=== PATIENT | female | born 1970 | race Caucasian/White ===

== ENCOUNTER 2025-07-24 12:16 | Emergency (ER) | payer SELFPAY ==
[~2025-07-24] VITALS: Ht 165.1 cm; Wt 93.0 kg
[2025-07-24 14:05] LABS: BASOPHILS % 0.6 % (0.0-1.0); EOSINOPHILS % 2.8 % (0.0-6.0); LYMPHOCYTES % 18.5 % (18.0-39.1); MONOCYTES % 6.1 % (4.4-11.3); NEUTROPHILS % 71.7 % (38.7-80.0); RED CELL DISTRIBUTION WIDTH 13.6 % (11.7-14.4)
[2025-07-24 14:11] LABS: LEUKOCYTE ESTERASE ,URINE NEGATIVE (NEGATIVE)
[2025-07-24 14:12] LABS: PROTEIN,URINE DIPSTICK TRACE (NEGATIVE); URINE UROBILINOGEN 0.2 mg/dL (0.2 - 1)
[2025-07-24 14:13] LABS: EPITHELIAL CELLS,URINE MANY /LPF; WBC,URINE (MAN) 0-5 /HPF (0-5)
[2025-07-24 14:16] LABS: EST GLOMERULAR FILTRATION RATE 93.0 ML/MIN (>=60); INR 1.05
[2025-07-24] MEDS: ONDANSETRON HCL INJ 2MG/ML 2ML 2 MG/ML VIAL IV STA (14:21)
[2025-07-24] MEDS: Morphine 4mg INJECTION 4 MG/ML INJ IV STA (14:21)
[2025-07-24] MEDS: SODIUM CHLORIDE 0.9% 1000ML 1,000 ML IV STA (14:22)
[2025-07-24] MEDS ORDERED: IOPAMIDOL 370 MG/ML 100 ML INFUS..BTL INJ ONE (14:55)
[2025-07-24 17:19] VITALS: PULSE 89; RESP 16; TEMP 98.3; O2SAT 98
== END 2025-07-24 17:23 | disposition home or self-care (01) ==
LOC: ER 13:32
DX: R10.32 Left lower quadrant pain (principal); K56.41 Fecal impaction; R14.0 Abdominal distension (gaseous); E03.9 Hypothyroidism, unspecified
CPT/HCPCS: 36415; 74177; 80053; 81001; 83690; 83735; 85025; 85610; 85730; 93005; 99284; J2270; J2405; J2470; J7030; Q9967